=== PATIENT | female | born 1975 | race Caucasian/White ===

== ENCOUNTER 2017-05-12 18:17 | Emergency (ER) | payer BC ==
[~2017-05-12] VITALS: Ht 165.1 cm; Wt 121.6 kg
[~2017-05-12 18:17] MED LIST: ARMOUR THYROID180 MG PO; DEXTROAMP-AMPHE30 MG PO; FLOMAX0.4 MG PO; LEVOTHYROXINE175 MCG PO; LIOTHYRONINE SO5 MCG PO; NORCO 5-325 TA1 EACH PO; PROMETHAZINE HC25 M1 PO; URSODIOL300 MG PO; VITAMIN D250000 UNIT PO
[2017-05-12] MEDS ORDERED: DOXYCYCLINE HY100 MG PO (18:35)
== END 2017-05-12 18:40 | disposition home or self-care (01) ==
LOC: ED 18:17
DX: J02.9 Acute pharyngitis, unspecified (principal); E03.9 Hypothyroidism, unspecified; Z88.0 Allergy status to penicillin; Z79.899 Other long term (current) drug therapy
CPT/HCPCS: 99283

== ENCOUNTER 2021-03-23 16:20 | Emergency (ER) | payer BC ==
[~2021-03-23] VITALS: Ht 165.1 cm; Wt 124.8 kg
[~2021-03-23 16:20] MED LIST changes: +DOXYCYCLINE HY100 MG PO
--- OUTSIDE RECORDS SUMMARY | 2021-03-23 16:22 | XMS ---
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 Hany has no Care Guidelines for this patient. Jimbo VISIT COUNT (12 MO.) 1 DOROTHEA Cavanaugh TOTAL 1 NOTE: Visits indicate total known visits. ED/C VISIT TRACKING (12 MO.) 03/23/2021 16:21 DOROTHEA Weiner [place] TYPE: Emergency COMPLAINT: - CHEST PAIN INPATIENT VISIT TRACKING (12 MO.) No inpatient visits to display in this time frame [email or web address]
[2021-03-23] MEDS ORDERED: VRAYLAR3 MG PO (16:31)
[2021-03-23] MEDS ORDERED: VYVANSE30 M1 PO (16:31)
[2021-03-23] MEDS ORDERED: AMPHETAMINE SAL10 MG PO (16:32)
--- NOTE | 2021-03-23 17:49 | EKG ---
[facility] [address] [place], [place] [address] Signed Normal sinus rhythm Low voltage QRS Nonspecific T wave abnormality Abnormal ECG No previous ECGs available Confirmed by LONG COMBS DO ([id number]) on 03/23/2021 5:49:03 PM Electronically Signed By: LONG COMBS DO 03/23/21 1749 PATIENT NAME: ARMOND MAC AUGUST Electrocardiogram DATE OF : 79 PHYSICIAN: LONG COMBS DO REPORT #: [id number] REPORT IS CONFIDENTIAL AND NOT TO BE RELEASED WITHOUT AUTHORIZATION
== END 2021-03-23 20:02 | disposition home or self-care (01) ==
LOC: ED 16:20
DX: R07.9 Chest pain, unspecified (principal); E03.9 Hypothyroidism, unspecified; Z88.0 Allergy status to penicillin; Z79.899 Other long term (current) drug therapy
CPT/HCPCS: 71045; 80048; 84484; 85025; 85379; 93005; 93010; 99285-25

== ENCOUNTER 2022-03-04 15:39 | Emergency (ER) | payer BC, OTHER ==
[~2022-03-04] VITALS: Ht 165.1 cm; Wt 121.6 kg
[~2022-03-04 15:39] MED LIST changes: +AMPHETAMINE SAL10 MG PO; +VRAYLAR3 MG PO; +VYVANSE30 M1 PO
--- OUTSIDE RECORDS SUMMARY | 2022-03-04 15:42 | XMS ---
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 Hany has no Care Guidelines for this patient. Jimbo VISIT COUNT (12 MO.) 2 DOROTHEA Cavanaugh TOTAL 2 NOTE: Visits indicate total known visits. ED/C VISIT TRACKING (12 MO.) 03/04/2022 15:40 DOROTHEA Weiner OR TYPE: Emergency COMPLAINT: - CHEST PAIN 03/23/2021 16:21 DOROTHEA Weiner OR TYPE: Emergency COMPLAINT: - CHEST PAIN DIAGNOSES: - Chest pain, unspecified - Hypothyroidism, unspecified - Other intermodal customer service (current) drug therapy - Allergy status to penicillin INPATIENT VISIT TRACKING (12 MO.) No inpatient visits to display in this time frame [email or web address]
[2022-03-04] MEDS ORDERED: ATIVAN1 MG PO (17:42)
[2022-03-04] MEDS ORDERED: NAPROSYN500 MG PO (17:42)
--- NOTE | 2022-03-07 12:25 | EKG ---
[facility] [address] [address] [facility] [place] [address] Signed Normal sinus rhythm Low voltage QRS Nonspecific T wave abnormality Abnormal ECG No previous ECGs available Confirmed by Lavinia Helm MD () on 03/05/2022 11:26:36 PM Electronically Signed By: LAVINIA HELM MD 03/05/22 612 Electronically Signed By: LAVINIA HELM MD 03/07/22 1225 PATIENT NAME: ARMOND MAC AUGUST Electrocardiogram DATE OF : 79 PHYSICIAN: LAVINIA HELM MD REPORT #: [id number] REPORT IS CONFIDENTIAL AND NOT TO BE RELEASED WITHOUT AUTHORIZATION
== END 2022-03-04 19:06 | disposition home or self-care (01) ==
LOC: ED 15:39
DX: R07.81 Pleurodynia (principal); E03.9 Hypothyroidism, unspecified; Z88.0 Allergy status to penicillin; Z79.899 Other long term (current) drug therapy; Z20.822 Contact with and (suspected) exposure to COVID-19
CPT/HCPCS: 36415; 71045; 71260; 71275; 80053; 84484; 85025; 85379; 85610; 93005; 93010; 96374; 96375; 99285-25; C9803; J1885; J2060; Q9967; U0003